=== PATIENT | male | born 1970 | race Caucasian/White ===

== ENCOUNTER 2021-10-29 05:43 | Day surgery (SDC) | payer BC ==
[2021-10-29] MEDS ORDERED: Midazolam 1 MG/ML 2 ML SDV IV ONE ×7 (05:44→06:44)
[2021-10-29] MEDS ORDERED: fentaNYL 100 MCG/2 ML SDV IV ONE ×4 (05:44→06:48)
[2021-10-29] MEDS ORDERED: fentaNYL 100 MCG/2 ML SDV ONE (06:09)
[2021-10-29] MEDS ORDERED: Midazolam 1 MG/ML 2 ML SDV ONE (06:09)
[2021-10-29] MEDS ORDERED: Dextrose 5%-0.45% NaCl 1,000 ML IV SCH (06:15)
--- NOTE | 2021-10-29 07:55 | OR ---
DATE: 10/29/2021 PROCEDURES: Total colonoscopy, narrow band imaging, and cold snare polypectomy. INSTRUMENT USED: [id number] Olympus video colonoscope. PREMEDICATIONS: Fentanyl 125 mcg intravenous, Versed 4 mg intravenous. Nasal O2 cannula. The procedure was done under pulse oximetry, BP recording, and pari mutuel ticket cashier. INDICATION: Screening colonoscopic examination is done for detection of any polypoid lesions and removal, endoscopic hemostasis therapy if needed. DESCRIPTION OF PROCEDURE: Initial rectal exam was unremarkable. Rigid anoscopy showed small internal hemorrhoids without bleeding from them. The colonoscope was passed with ease up to ileocecal area. Photographs were taken of the normal- appearing cecum identified by double-bulged ileocecal folds. No bleeding was noted from any of the visualized areas at the commencement of the examination. The bowel preparation was found to be adequate, Pollok scale 2 in left and right colon, 3 in transverse colon, total score 7. No stricture. No vascular ectasia. No large isolated ulcerations seen. No evidence of diffuse inflammatory bowel disease in the form of friability, contact bleeding, or ulcerations. Second look of the right colon was made. In the mid ascending colon, 1 cm sized superficial benign-appearing polyp was noted, NBI views were obtained, photographs were taken, cold snare polypectomy was done and the tissues were retrieved and sent for histopathology. Post polypectomy photographs were taken. Probing the proximal sides of folds and flexures using adequate distention and clearing up the stool material, withdrawal of the scope was made. No bleeding was noted from any of the visualized areas at the completion of examination. IMPRESSION: 1. Internal hemorrhoids. 2. Ascending colon polyp. The patient tolerated the procedure well. [facility] /[id number]
[2021-10-29 12:39] VITALS: BP 116/75; PULSE 57
== END 2021-10-29 09:13 | disposition home or self-care (01) ==
LOC: DL.ENDO 05:43
PROVIDERS: ATTEND Internal Medicine Gastroenterology
DX: Z12.11 Encounter for screening for malignant neoplasm of colon (principal); D12.2 Benign neoplasm of ascending colon; K64.8 Other hemorrhoids; I25.10 Atherosclerotic heart disease of native coronary artery without angina pectoris; I10 Essential (primary) hypertension; E78.5 Hyperlipidemia, unspecified; Z98.890 Other specified postprocedural states
CPT/HCPCS: 45385; J2250; J3010; J7042